=== PATIENT | female | born 1965 | race Two or more races ===

== ENCOUNTER 2018-01-06 00:45 | Emergency (ER) | payer OTHER ==
[~2018-01-06] VITALS: Ht 154.9 cm; Wt 103.4 kg
[2018-01-06] MEDS ORDERED: AVAPRO150 MG (01:17)
[2018-01-06] MEDS ORDERED: HUMALOG100 UNIT/1 (01:17)
[2018-01-06] MEDS ORDERED: LANTUS SOL100 UNIT/1 (01:17)
[2018-01-06] MEDS ORDERED: SINGULAIR5 MG (01:17)
[2018-01-06] MEDS ORDERED: SYNTHROID50 MCG (01:17)
[2018-01-06] MEDS ORDERED: [UNRECOGNIZED DRUG - OTHER] (01:19)
[2018-01-06] MEDS ORDERED: AMOX-CLAV 875-1 EACH PO (02:05)
[2018-01-06] MEDS ORDERED: KETO10TA2 PO (02:05)
== END 2018-01-06 02:35 | disposition home or self-care (01) ==
LOC: ER 00:45
DX: K08.89 Other specified disorders of teeth and supporting structures (principal)

== ENCOUNTER 2022-09-22 11:14 | Inpatient (IN) | payer OTHER ==
[~2022-09-22] VITALS: Ht 154.9 cm; Wt 89.8 kg
[~2022-09-22 11:14] MED LIST: AMOX-CLAV 875-1 EACH PO; AVAPRO150 MG; HUMALOG100 UNIT/1; KETO10TA2 PO; LANTUS SOL100 UNIT/1; SINGULAIR5 MG; SYNTHROID50 MCG; [UNRECOGNIZED DRUG - OTHER]
[2022-09-23] MEDS ORDERED: LEVOTHYROXINE25 MCG PO (12:49)
[2022-09-23] MEDS ORDERED: COZAAR25 MG PO (12:50)
[2022-09-23] MEDS ORDERED: JANUMET 50-5001 EACH PO (12:50)
[2022-09-29] MEDS ORDERED: PERCOCET 5-3251 EACH PO (07:43)
[2022-09-29] MEDS ORDERED: DUI500 PO (07:43)
[2022-09-29] MEDS ORDERED: ELIQUIS2.5 MG PO (07:43)
[2022-09-29] MEDS ORDERED: JANUMET 50-5001 EACH PO (15:31)
== END 2022-09-30 16:23 | DRG 470 ==
LOC: O/R 09-28 06:30 → SURG 09-28 06:30 → SURH 09-28 09:15 → SURG 09-28 20:29
PROVIDERS: ADMIT Orthopaedic Surgery; ATTEND Orthopaedic Surgery
PROC: 0SRD0J9 Replacement of Left Knee Joint with Synthetic Substitute, Cemented, Open Approach (ICD-10-PCS; principal; 2022-09-28 19:00)
DX: M17.12 Unilateral primary osteoarthritis, left knee (principal); E11.8 Type 2 diabetes mellitus with unspecified complications; I10 Essential (primary) hypertension